=== PATIENT | female | born 1975 | race American Indian/Alaskan Native ===

== ENCOUNTER 2017-03-25 09:55 | Inpatient (IN) | payer SELFPAY ==
[~2017-03-25 09:55] MED LIST: HEPARIN 10,000 UNITS/10 ML ONE
[2017-03-25] MEDS ORDERED: HEPARIN/ 0.45% NACL-25,000 UNIT/500 ML 25,000 UNIT/500 ML BAG IV SCH (10:00)
[2017-03-25] MEDS ORDERED: NACL 0.9% 1000 ML 1,000 ML IV ONE (10:00)
[2017-03-25] MEDS ORDERED: HEPARIN IV ONE (10:00)
[2017-03-25] MEDS ORDERED: NITROSTAT SL PRN (10:00)
[2017-03-25] MEDS ORDERED: CALAN ONE (10:01)
[2017-03-25] MEDS ORDERED: HEPARIN/NS 5000 UNIT/500ML(CATH LAB) 1,000 ML IR ONE (10:01)
[2017-03-25] MEDS ORDERED: NACL 0.9% 1000 ML 1,000 ML ONE (10:02)
[2017-03-25] MEDS ORDERED: XYLOCAINE 2% INFILTRATI ONE (10:02)
[2017-03-25] MEDS ORDERED: SUBLIMAZE ONE (10:03)
[2017-03-25] MEDS ORDERED: VERSED ONE (10:03)
[2017-03-25] MEDS ORDERED: HEPARIN 10,000 UNITS/10 ML IV ONE (10:03)
[2017-03-25] MEDS ORDERED: NITROGLYCERIN SYRINGE 3 ML ONE (10:04)
--- NOTE | 2017-03-25 10:05 | Emergency Department Report ---
ED Chest Pain HPI - General Chief Complaint: Chest Pain Stated Complaint: STEMI Time Seen by Provider: 03/25/17 09:58 Source: patient, EMS Mode of arrival: Stretcher Limitations: No Limitations - History of Present Illness Initial Comments: 41-year-old female with a past medical history hypertension, diabetes, and family history CAD presents to the hospital complaints of left sided chest tightness 6 days. Pain is rated 8/10 intensity and radiates down left arm. Pain is intermittent and without aggravating or alleviating factors. Positive social shortness of breath and diaphoresis. Denies nausea or vomiting. Patient was seen 6 days ago at [facility] ER for chest pain and discharged home on tramadol and Flexeril. Denies history of previous stress test. Denies smoking. Her mother of "heart disease" at age 40. EKG was transmitted by EMS prior to arrival and shows lateral ST elevation with associated inferior reciprocal changes. Patient does not have a assembler for puller over machine. 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 Patient received aspirin 324 mg prior to arrival - Related Data Previous Rx's Medication Instructions Recorded Last Taken Type Cyclobenzaprine [Flexeril 10mg] 10 mg PO TID PRN #14 tablet 10/26/13 Unknown Rx Naproxen [Naprosyn] 500 mg PO BID #20 tablet 10/26/13 Unknown Rx traMADol [Ultram 50 MG tab] 50 mg PO Q6HR PRN #20 tablet 10/26/13 Unknown Rx Cyclobenzaprine [Flexeril 10mg] 10 mg PO TID PRN #14 tablet 04/28/14 Unknown Rx Ibuprofen [Motrin 800 MG tab] 800 mg PO Q8H PRN #30 tablet 04/28/14 Unknown Rx Losartan/Hydrochlorothiazide 1 each PO QDAY #14 tablet 04/28/14 Unknown Rx [Hyzaar 100-25 TAB] amLODIPine [Norvasc] 5 mg PO DAILY #14 tab 04/28/14 Unknown Rx metroNIDAZOLE [Flagyl] 500 mg PO BID #14 tablet 04/28/14 Unknown Rx Allergies Allergy/AdvReac Type Severity Reaction Status Date / Time acetaminophen [From Lortab] Allergy Shortness Verified 10/26/13 15:17 of Breath hydrocodone bitartrate Allergy Shortness Verified 10/26/13 15:17 [From Lortab] of Breath Heart Score - HEART Score History: Highly suspicious EKG: Significant ST-depression Age: 45-65 Risk factors: > 3 risk factors or hx of atherosclerotic disease Troponin: < normal limit HEART Score: 7 ED Review of Systems ROS: Stated complaint: STEMI Other details as noted in HPI Comment: All other systems reviewed and negative Other: Constitutional: No fevers chills or weight loss Eyes: No eye pain visual changes or discharge ENT: No ear pain or throat pain Neck: Denies pain Respiratory: Denies cough wheezing Cardiovascular: Denies palpitations, syncope GI: Denies abdominal pain : Denies dysuria Musculoskeletal: Denies back pain Skin: Denies rash, lesions, erythema Neurologic: Denies headache, numbness, weakness Psychiatric: Denies suicidal ideation, hallucinations ED Past Medical Hx - Past Medical History Previous Medical History?: Yes Hx Hypertension: Yes Hx Diabetes: Yes Additional medical history: back problems - Surgical History Past Surgical History?: Yes Additional Surgical History: x 4 - Social History Smoking Status: Never Smoker Substance Use Type: Alcohol - Medications Home Medications: Home Medications Medication Instructions Recorded Confirmed Last Taken Type Cyclobenzaprine [Flexeril 10mg] 10 mg PO TID PRN #14 tablet 10/26/13 Unknown Rx Naproxen [Naprosyn] 500 mg PO BID #20 tablet 10/26/13 Unknown Rx traMADol [Ultram 50 MG tab] 50 mg PO Q6HR PRN #20 tablet 10/26/13 Unknown Rx Cyclobenzaprine [Flexeril 10mg] 10 mg PO TID PRN #14 tablet 04/28/14 Unknown Rx Ibuprofen [Motrin 800 MG tab] 800 mg PO Q8H PRN #30 tablet 04/28/14 Unknown Rx Losartan/Hydrochlorothiazide 1 each PO QDAY #14 tablet 04/28/14 Unknown Rx [Hyzaar 100-25 TAB] amLODIPine [Norvasc] 5 mg PO DAILY #14 tab 04/28/14 Unknown Rx metroNIDAZOLE [Flagyl] 500 mg PO BID #14 tablet 04/28/14 Unknown Rx ED Physical Exam - General Limitations: No Limitations - Other Other exam information: General: No limitations, patient is alert in no acute distress Head exam: Atraumatic, normocephalic Eyes exam: Normal appearanc ENT: Moist mucous membrane, normal oropharynx Neck exam: Normal inspection, full range of motion, no meningismus nontender Respiratory exam: Clear to auscultation bilateral, no wheezes, rales, crackles Cardiovascular: Normal rate and rhythm, normal heart sounds Abdomen: Soft, nondistended, and nontender, with normal bowel sounds, no rebound, or guarding Extremity: Full range of motion normal inspection no deformity, no calf tenderness or edema Back: Normal Inspection, full range of motion, no tenderness Neurologic: Alert, oriented x3, cranial nerves intact, no motor or sensory deficit Psychiatric: normal affect, normal mood Skin: Warm, dry, intact ED Course Vital Signs 03/25/17 09:56 Temperature 98.5 F Pulse Rate 99 H Respiratory 20 Rate Blood Pressure 142/85 O2 Sat by Pulse 100 Oximetry - Reevaluation(s) Reevaluation #1: 03/25/17 10:07 Cardiology was at the bedside as patient was arriving to the ED. Nitroglycerin sublingual ordered and heparin bolus initiated prior to transfer to Tester Waste Disposal Leakage. - Consultations Consultation #1: 03/25/17 09:42 Case discussed with on-call STEMI assembler for puller over machine Dr. Curry. Tester Waste Disposal Leakage activated CHARITO score - Charito Score Age > 65: (0) No Aspirin use within the Past 7 Days: (0) No 3 or more CAD Risk Factors: (1) Yes 2 or more Angina events in past 24 hrs: (1) Yes Known CAD with more than 50% Stenosis: (0) No Elevated Cardiac Markers: (0) No ST Deviation Greater than 0.5mm: (1) Yes CHARITO Score: 3 ED Medical Decision Making - Lab Data Result diagrams: 03/25/17 09:55 03/25/17 09:55 Lab Results 03/25/17 03/25/17 03/25/17 Range/Units 09:55 09:55 09:55 WBC 7.9 (4.5-11.0) K/mm3 RBC 4.37 (3.65-5.03) M/mm3 Hgb 7.6 L (10.1-14.3) gm/dl Hct 25.9 L (30.3-42.9) % MCV 59 L (79-97) fl MCH 18 L (28-32) pg MCHC 29 L (30-34) % RDW 18.5 H (13.2-15.2) % Plt Count 379 (140-440) K/mm3 Lymph % (Auto) 34.9 (13.4-35.0) % [place] % (Auto) 6.3 (0.0-7.3) % Eos % (Auto) 0.4 (0.0-4.3) % Baso % (Auto) 2.0 H (0.0-1.8) % Lymph # 2.8 (1.2-5.4) K/mm3 [place] # 0.5 (0.0-0.8) K/mm3 Eos # 0.0 (0.0-0.4) K/mm3 Baso # 0.2 H (0.0-0.1) K/mm3 Seg Neutrophils % 56.4 (40.0-70.0) % Seg Neutrophils # 4.4 (1.8-7.7) K/mm3 PT 13.3 (12.2-14.9) Sec. INR 0.96 (0.87-1.13) APTT 23.5 L (24.2-36.6) Sec. Activated Clotting Time (74-137) Sodium 132 L (137-145) mmol/L Potassium 3.7 (3.6-5.0) mmol/L Chloride 94.2 L (98-107) mmol/L Carbon Dioxide 22 (22-30) mmol/L Anion Gap 20 mmol/L BUN 7 (7-17) mg/dL Creatinine 0.6 L (0.7-1.2) mg/dL Estimated GFR > 60 ml/min BUN/Creatinine Ratio 12 % Glucose 313 H (65-100) mg/dL Calcium 8.7 (8.4-10.2) mg/dL Total Creatine Kinase 178 H (30-135) units/L CK-MB (CK-2) 6.5 H (0.0-4.0) ng/mL CK-MB (CK-2) Rel Index 3.6 (0-4) Troponin T 0.024 (0.00-0.029) ng/mL Blood Type Antibody Screen 03/25/17 03/25/17 Range/Units 09:55 13:02 WBC (4.5-11.0) K/mm3 RBC (3.65-5.03) M/mm3 Hgb (10.1-14.3) gm/dl Hct (30.3-42.9) % MCV (79-97) fl MCH (28-32) pg MCHC (30-34) % RDW (13.2-15.2) % Plt Count (140-440) K/mm3 Lymph % (Auto) (13.4-35.0) % [place] % (Auto) (0.0-7.3) % Eos % (Auto) (0.0-4.3) % Baso % (Auto) (0.0-1.8) % Lymph # (1.2-5.4) K/mm3 [place] # (0.0-0.8) K/mm3 Eos # (0.0-0.4) K/mm3 Baso # (0.0-0.1) K/mm3 Seg Neutrophils % (40.0-70.0) % Seg Neutrophils # (1.8-7.7) K/mm3 PT (12.2-14.9) Sec. INR (0.87-1.13) APTT (24.2-36.6) Sec. Activated Clotting Time 142 H (74-137) Sodium (137-145) mmol/L Potassium (3.6-5.0) mmol/L Chloride (98-107) mmol/L Carbon Dioxide (22-30) mmol/L Anion Gap mmol/L BUN (7-17) mg/dL Creatinine (0.7-1.2) mg/dL Estimated GFR ml/min BUN/Creatinine Ratio % Glucose (65-100) mg/dL Calcium (8.4-10.2) mg/dL Total Creatine Kinase (30-135) units/L CK-MB (CK-2) (0.0-4.0) ng/mL CK-MB (CK-2) Rel Index (0-4) Troponin T (0.00-0.029) ng/mL Blood Type B POSITIVE Antibody Screen Negative - EKG Data -: EKG Interpreted by Ri EKG shows normal: sinus rhythm, axis (13), QRS complexes (80), ST-T waves (ST elevation 1 aVL with depressions in inferior leads. Possible anterior infarct) - Differential Diagnosis STEMI, unstable angina, PE, dissection Critical Care Time: No Critical care attestation.: If time is entered above; I have spent that time in minutes in the direct care of this critically ill patient, excluding procedure time. 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
[2017-03-25 10:21] LABS: INR 0.96 (0.87-1.13)
[2017-03-25 10:22] LABS: Partial Thromboplastin Time 23.5 Sec. (24.2-36.6)
[2017-03-25 10:23] LABS: Basophils # (Auto) 0.2 K/mm3 (0.0-0.1); Eosinophils % (Auto) 0.4 % (0.0-4.3); Lymphocytes # (Auto) 2.8 K/mm3 (1.2-5.4); Lymphocytes % (Auto) 34.9 % (13.4-35.0); Mean Corpuscular HGB Conc 29 % (30-34); Monocytes # (Auto) 0.5 K/mm3 (0.0-0.8); Monocytes % (Auto) 6.3 % (0.0-7.3); Platelet Count 379 K/mm3 (140-440); Red Blood Count 4.37 M/mm3 (3.65-5.03); Red Cell Distribution Width 18.5 % (13.2-15.2)
[2017-03-25] MEDS: HEPARIN 10,000 UNITS/10 ML ONE ×2 (10:24→10:34)
[2017-03-25 10:25] LABS: Hematocrit 25.9 % (30.3-42.9); Hemoglobin 7.6 gm/dl (10.1-14.3); Mean Corpuscular Hemoglobin 18 pg (28-32); Mean Corpuscular Volume 59 fl (79-97)
[2017-03-25 10:31] LABS: Creatine Kinase MB 6.5 ng/mL (0.0-4.0)
[2017-03-25 10:32] LABS: BUN/Creatinine Ratio 12; Blood Urea Nitrogen 7 mg/dL (7-17); Calcium 8.7 mg/dL (8.4-10.2); Hemolysis Index 0
[2017-03-25] MEDS ORDERED: PLAVIX ONE (10:46)
[2017-03-25] MEDS ORDERED: ALUM-MAG HYDROX-SIMETH 200-200-20MG/5ML ONE (10:46)
--- NOTE | 2017-03-25 10:54 | History and Physical Report ---
History of Present Illness Date of examination: 03/25/17 Date of admission: 03/25/2017 Chief complaint: chest pain History of present illness: The pt is a 41-year-old female with a past medical history significant for hypertension, diabetes, anemia secondary to heavy menstruation and family history of premature CAD (mother at 40 YOA of "heart disease"). She is previously unknown to our practice. 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 She describes the chest pain as an intermittent left-sided chest tightness which radiates down her left arm. On evaluation, the pt reports that the chest pain is 8/10 on a 0-10 numerical pain scale. The pain is associated with some SOB. Pt denies any palpitations, n/v, dizziness or syncope. She does admit to diaphoresis but reports that this is chronic and unchanged from baseline. Pt denies any clear aggravating or alleviating factors. EKG transmitted by EMS prior to arrival showed ST elevations in lateral leads and code STEMI was activated. Following arrival in ED, pt was taken to recyclable materials sorter for emergent coronary angiography per STEMI protocol. Of note, the patient presented on 03/20/2017 at [facility] with c/o chest pain. She was evaluated in the ED and was found to have EKG with no acute ischemic changes , negative troponin and chest pain that was felt to be reproducible with left arm manipulation per the chart. Pt was discharged home on tramadol and Flexeril. Past History Past Medical History: anemia, diabetes, hypertension Social history: denies: smoking, alcohol abuse, prescription drug abuse Family history: CAD (mother at 40 YOA due to "heart disease") Medications and Allergies Allergies Allergy/AdvReac Type Severity Reaction Status Date / Time acetaminophen [From Lortab] Allergy Shortness Verified 10/26/13 15:17 of Breath hydrocodone bitartrate Allergy Shortness Verified 10/26/13 15:17 [From Lortab] of Breath Home Medications Medication Instructions Recorded Confirmed Last Taken Type Cyclobenzaprine [Flexeril 10mg] 10 mg PO TID PRN #14 tablet 10/26/13 Unknown Rx Naproxen [Naprosyn] 500 mg PO BID #20 tablet 10/26/13 Unknown Rx traMADol [Ultram 50 MG tab] 50 mg PO Q6HR PRN #20 tablet 10/26/13 Unknown Rx Cyclobenzaprine [Flexeril 10mg] 10 mg PO TID PRN #14 tablet 04/28/14 Unknown Rx Ibuprofen [Motrin 800 MG tab] 800 mg PO Q8H PRN #30 tablet 04/28/14 Unknown Rx Losartan/Hydrochlorothiazide 1 each PO QDAY #14 tablet 04/28/14 Unknown Rx [Hyzaar 100-25 TAB] amLODIPine [Norvasc] 5 mg PO DAILY #14 tab 04/28/14 Unknown Rx metroNIDAZOLE [Flagyl] 500 mg PO BID #14 tablet 04/28/14 Unknown Rx Active Meds: Active Medications Heparin Sodium/Sodium Chloride (Heparin/ 0.45% Nacl-25,000 Unit/500 Ml) 25,000 unit in 500 mls @ 20 mls/hr IV TITRATE RAUL; 1,000 UNITS/HR PRN Reason: Protocol Sodium Chloride (Nacl 0.9% 1000 Ml) 1,000 mls @ 42 mls/hr IV ONCE ONE Stop: 03/26/17 09:48 Nitroglycerin (Nitrostat) 0.4 mg SL .Q5MIN PRN PRN Reason: Chest Pain Review of Systems Constitutional: sweats (chronic), no weight loss, no weight gain, no fever, no chills Ears, nose, mouth and throat: no ear pain, no nose pain, no sinus pressure, no sinus pain Cardiovascular: chest pain, shortness of breath, high blood pressure, no orthopnea, no palpitations, no rapid/irregular heart beat, no edema, no syncope , no lightheadedness, no paroxysmal nocturnal dyspnea, no leg edema, no decreased exercise tolerance Respiratory: shortness of breath, no cough, no congestion, no wheezing, no pain on inspiration Gastrointestinal: no abdominal pain, no nausea, no vomiting, no diarrhea, no constipation Genitourinary Female: no pelvic pain, no flank pain, no dysuria, no urinary frequency, no urgency Menstruation: period heavy Musculoskeletal: no neck stiffness, no neck pain Integumentary: no rash, no pruritis, no redness, no sores, no wounds Neurological: no head injury, no paralysis, no weakness, no parathesias, no numbness, no tingling, no seizures, no syncope Psychiatric: no anxiety Endocrine: no cold intolerance, no heat intolerance Hematologic/Lymphatic: no easy bruising, no lymphadenopathy Allergic/Immunologic: no urticaria, no wheezing, no persistent infections Physical Examination Vital Signs Temp Pulse Resp BP Pulse Ox 98.5 F 99 H 20 142/85 100 03/25/17 09:56 03/25/17 09:56 03/25/17 09:56 03/25/17 09:56 03/25/17 09:56 General appearance: other (anxious ) HEENT: Positive: PERRL, Normocephaly, Mucus Membranes Moist Neck: Positive: neck supple, trachea midline Cardiac: Positive: Reg Rate and Rhythm, S1/S2 Lungs: Positive: clear to auscultation Neuro: Positive: Grossly Intact, Cranial Nerve 2-12 Intact Abdomen: Positive: Soft. Negative: Tender Skin: Positive: Clear. Negative: Rash, Wound Musculoskeletal: No Fluid Collection, No Pain, Normal Range of Motion Extremities: Absent: edema Results 03/26/17 05:53 03/26/17 05:53 Cardiac Enzymes 03/25/17 Range/Units 09:55 CK-MB (CK-2) 6.5 H (0.0-4.0) ng/mL Coagulation 03/25/17 Range/Units 09:55 PT 13.3 (12.2-14.9) Sec. INR 0.96 (0.87-1.13) APTT 23.5 L (24.2-36.6) Sec. CBC 03/25/17 Range/Units 09:55 WBC 7.9 (4.5-11.0) K/mm3 RBC 4.37 (3.65-5.03) M/mm3 Hgb 7.6 L (10.1-14.3) gm/dl Hct 25.9 L (30.3-42.9) % Plt Count 379 (140-440) K/mm3 Lymph # 2.8 (1.2-5.4) K/mm3 [place] # 0.5 (0.0-0.8) K/mm3 Eos # 0.0 (0.0-0.4) K/mm3 Baso # 0.2 H (0.0-0.1) K/mm3 Comprehensive Metabolic Panel 03/25/17 Range/Units 09:55 Sodium 132 L (137-145) mmol/L Potassium 3.7 (3.6-5.0) mmol/L Chloride 94.2 L (98-107) mmol/L Carbon Dioxide 22 (22-30) mmol/L BUN 7 (7-17) mg/dL Creatinine 0.6 L (0.7-1.2) mg/dL Glucose 313 H (65-100) mg/dL Calcium 8.7 (8.4-10.2) mg/dL - Imaging and Cardiology Echo: pending Cardiac cath: pending EKG: report reviewed, image reviewed EKG interpretations - Telemetry EKG Rhythm: Sinus Rhythm - EKG Sinus rhythms and dysrhythmias: sinus rhythm Myocardial infarction: lateral [place] (acute or rece Assessment and Plan Assessment: S/p acute lateral STEMI CAD Sinus bradycardia - asymptomatic HTN DM / hyperglycemia Hyponatremia Anemia - due to heavy menstruation per pt report Family history of premature CAD Plan: S/p LHC with PCI - BMS placement to D2 - full cath report to follow. Initiate DAPT with ASA 325 and Plavix. Initiate Lipitor. Obtain lipid panel and Hgb A1C in AM. Initiate lisinopril. Hold beta blockers at this time given sinus bradycardia. Obtain echo. Monitor H/H. Consider DIVERSITY SPECIALIST consultation. Tx to CCU for observation overnight. D/w Dr. Riley. Assessment and plan reviewed with pt and pt's daughter at bedside. The patient has been seen in conjunction with Dr. David Curry who agrees with the assessment and plan of care.
[2017-03-25] MEDS ORDERED: D50W (25GM) Syringe IV PRN (11:12)
[2017-03-25] MEDS ORDERED: ZESTRIL PO SCH (12:00)
--- NOTE | 2017-03-25 12:42 | Cardiac Catherization Report ---
CARDIAC CATHETERIZATION INDICATION FOR PROCEDURE: The patient is a pleasant 41-year-old -L[place] female with a family history of premature heart disease, diabetes, hypertension, presents with several hours of chest pain, lateral ST elevation is noted in Emergency Room, 10/10 chest pain. STEMI protocol was initiated. PROCEDURE IN DETAIL: The patient was brought to the catheterization lab in urgent fashion, 8 mL of 2% lidocaine used to anesthetize the right groin. A standard 6-Kiswahili sheath used to cannulate the right common femoral artery via modified Seldinger technique. All exchanges were performed to exchange a J-tip guidewire. JL3.5 catheter used to engage left main. No dampening or ventricularization. Cineangiography performed in all projections. JR4 catheter was used to cross the aortic valve under fluoroscopic guidance. Left ventriculography performed in 30 WILCOX and 30 DANISH projections via hand injections, catheter flushed. Manual pullback performed with continuous pressure monitoring. Catheter used to engage the right coronary. No dampening or ventricularization. Cineangiography performed in all projections. DATA: Aortic pressure is 140/90, LV pressure is 140. LVP of 16 mmHg. Left ventriculography revealed preserved left ventricular systolic performance with estimated ejection fraction of 50% to 55%. No evidence of aortic stenosis. Normal . CORONARY ANATOMY: This is a codominant system. Right coronary is a moderate sized vessel, courses AV groove, distally bifurcates in the posterior descending and posterolateral branch. No discrete stenosis noted. Left main without significant disease, bifurcates left anterior descending and left circumflex. Left circumflex is a moderate to large vessel, courses AV groove, left PDA. No significant disease. LAD is a large vessel, courses anterior intergroove, wraps around the apex, and no significant disease in the LAD. There is a second diagonal, which is approximately 2.5 vessel with an ulcerated 99% subtotal occlusion proximally. I believe this to be the culprit vessel given the lateral STEMI and chest pain. At this point, we turned our attention to PCI. Heparin was given. Abnormal ACT is confirmed. The patient was given aspirin and Plavix and EBU 3.5 guide used to engage the left main without difficulty. A Whisper extra support wire used to cross the second diagonal lesion without difficulty. I used a 2.0 x 12 balloon to predilate the lesion without difficulty, resumption of CHARITO 3 flow. Next, I used a 2.5 x 12 bare metal stent Resolute. The reason I used a bare metal stent was that the patient was found to have severe anemia and heavy menstrual bleeding with hemoglobin of 7.6. The etiology of this is not entirely clear and thus I used a bare metal. Intravascular ultrasound was used to interrogate diagonal, proximal LAD and left main. IVUS revealed a well expanded and well opposed stent. No complications. Final angiogram reveals excellent angiographic result, CHARITO 3 flow. CONCLUSIONS: 1. Atherothrombotic occlusion of second diagonal in the setting of the lateral ST elevation myocardial infarction. 2. Successful IVUS guided PCI of second diagonal with placement of bare metal stent Integrity 2.5 x 12 stent with excellent final angiographic and ultrasonographic results. 3. No other significant angiographic coronary diseases identified. 4. Normal left ventricular systolic performance, estimated ejection fraction of 50% to 55%. 5. No evidence of aortic stenosis. Standard Groin care post-sheath once ACT less than 170, statin, aspirin, Plavix, aggressive primary and secondary preventions. Her mother had 4 MIs and eventually at age of 40. Results of procedure were explained to the patient and family. All questions and concerns were addressed. The patient will be monitored in the ICU. We will check an echocardiogram; however, further plans contingent on post-cath course. JOB# [id number] SBMalcolm/STEVEN
--- NOTE | 2017-03-25 13:47 | XRay Report ---
AP CHEST: HISTORY: chest pain AP view of the chest demonstrates a normal mediastinal and cardiac contour with clear lungs and normal bony and soft tissue structures. IMPRESSION: Unremarkable AP chest.
[2017-03-25] MEDS ORDERED: NOVOLOG SUB-Q ONE (16:10)
[2017-03-25] MEDS: NOVOLOG SUB-Q SCH ×2 (16:10→22:00)
[2017-03-25] MEDS ORDERED: ULTRAM PO PRN (16:26)
[2017-03-25] MEDS ORDERED: ZOFRAN IV PRN (16:32)
[2017-03-25 17:40] LABS: Creatine Kinase MB 31.7 ng/mL (0.0-4.0)
[2017-03-25 18:08] LABS: Chol/HDL Ratio 3.79 %
[2017-03-25] MEDS ORDERED: MORPHINE IV ONE (21:16)
--- NOTE | 2017-03-25 22:03 | Event Note ---
Date: 03/25/17 41-year-old female with a past medical history hypertension, diabetes, and family history CAD presents to the hospital complaints of left sided chest tightness 6 days. Pain is rated 8/10 intensity and radiates down left arm. Pain is intermittent and without aggravating or alleviating factors. Positive social shortness of breath and diaphoresis. Denies nausea or vomiting. Patient was seen 6 days ago at [facility] ER for chest pain and discharged home on tramadol and Flexeril. Denies history of previous stress test. Denies smoking. Her mother of "heart disease" at age 40. EKG was transmitted by EMS prior to arrival and shows lateral ST elevation with associated inferior reciprocal changes. 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 Patient received aspirin 324 mg prior to arrival Patient is now s/p bare metal stent and has been admitted to the ICU for monitoring. he remains hemodynamically normal.
--- NOTE | 2017-03-26 04:06 | XRay Report ---
FINAL REPORT EXAM: XR CHEST 1V AP HISTORY: Status post percutaneous cardiac catheterization. TECHNIQUE: A single AP semi erect portable radiograph of the chest was obtained. No prior studies are available for comparison. FINDINGS: The cardiac silhouette and mediastinum are within normal limits, accounting for the AP positioning and somewhat low lung volumes. There is slight prominence of the pulmonary vasculature, which may be due to low lung volumes versus minimal pulmonary vascular congestion. There is no focal infiltrate or effusion. There is no pneumothorax. No significant osseous abnormalities are identified. IMPRESSION: Slight prominence of the pulmonary vasculature, which may be due to a low lung volumes versus mild pulmonary vascular congestion. No focal infiltrate, effusion, or pneumothorax.
[2017-03-26 06:31] LABS: Basophils # (Auto) 0.1 K/mm3 (0.0-0.1); Basophils % (Auto) 2.1 % (0.0-1.8); Eosinophils % (Auto) 0.7 % (0.0-4.3); Lymphocytes # (Auto) 1.5 K/mm3 (1.2-5.4); Lymphocytes % (Auto) 21.1 % (13.4-35.0); Mean Corpuscular HGB Conc 29 % (30-34); Monocytes # (Auto) 0.5 K/mm3 (0.0-0.8); Platelet Count 380 K/mm3 (140-440); Red Blood Count 4.74 M/mm3 (3.65-5.03); Red Cell Distribution Width 18.6 % (13.2-15.2)
[2017-03-26 06:48] LABS: Hematocrit 28.2 % (30.3-42.9); Mean Corpuscular Hemoglobin 17 pg (28-32); Mean Corpuscular Volume 59 fl (79-97)
[2017-03-26 06:49] LABS: Creatine Kinase MB 30.3 ng/mL (0.0-4.0)
[2017-03-26 06:53] LABS: BUN/Creatinine Ratio 18; Blood Urea Nitrogen 9 mg/dL (7-17); Calcium 8.6 mg/dL (8.4-10.2); Hemolysis Index 5
[2017-03-26] MEDS: NOVOLOG SUB-Q SCH ×5 (08:08→21:30)
--- NOTE | 2017-03-26 09:05 | Progress Note ---
Assessment and Plan Assessment: S/p acute lateral STEMI - s/p LHC with PCI - BMS placement to D2 on 03/25/2017 CAD Sinus bradycardia - asymptomatic; resolved HTN DM / hyperglycemia Hyponatremia Anemia - due to heavy menstruation per pt report Family history of premature CAD Plan: Pt currently with mild ST and borderline hypotension. D/c lisinopril. Cont all other present cardiac regimen. Consider addition of BB if BPs improve. Initiate maintenance IVF. Transfuse 1 unit PRBC today as preferred Hbg following STEMI is ~10 to prevent demand ischemia. Repeat CBC in AM. Await echo. Tx out of ICU to telemetry. Assessment and plan reviewed with pt and pt's daughter at bedside. The patient has been seen in conjunction with Dr. David Curry who agrees with the assessment and plan of care. Subjective Date of service: 03/26/17 Principal diagnosis: STEMI Interval history: Pt resting up in chair, no current complaints. In SR/ST on tele, SBP in 90s. Daughter at bedside. Objective Last Vital Signs Temp 97.9 F 03/26/17 08:00 Pulse 85 03/25/17 22:00 Resp 16 03/26/17 03:55 BP 117/74 03/25/17 20:40 Pulse Ox 98 03/26/17 03:55 - Physical Examination HEENT: Positive: PERRL, Normocephaly, Mucus Membranes Moist Neck: Positive: neck supple, trachea midline Cardiac: Positive: Reg Rate and Rhythm, S1/S2 Lungs: Positive: clear to auscultation Neuro: Positive: Grossly Intact, Cranial Nerve 2-12 Intact Abdomen: Positive: Soft. Negative: Tender Skin: Positive: Clear. Negative: Rash, Wound Musculoskeletal: No Fluid Collection, No Pain, Normal Range of Motion Extremities: Absent: edema - Labs and Meds Cardiac Enzymes 03/25/17 03/25/17 03/26/17 Range/Units 09:55 17:16 05:53 CK-MB (CK-2) 6.5 H 31.7 H 30.3 H (0.0-4.0) ng/mL Coagulation 03/25/17 Range/Units 09:55 PT 13.3 (12.2-14.9) Sec. INR 0.96 (0.87-1.13) APTT 23.5 L (24.2-36.6) Sec. Lipids 03/25/17 Range/Units 17:16 Triglycerides 163 H (2-149) mg/dL Cholesterol 186 (50-199) mg/dL HDL Cholesterol 49 (40-59) mg/dL Cholesterol/HDL Ratio 3.79 % CBC 03/25/17 03/26/17 Range/Units 09:55 05:53 WBC 7.9 7.3 (4.5-11.0) K/mm3 RBC 4.37 4.74 (3.65-5.03) M/mm3 Hgb 7.6 L 8.0 L (10.1-14.3) gm/dl Hct 25.9 L 28.2 L (30.3-42.9) % Plt Count 379 380 (140-440) K/mm3 Lymph # 2.8 1.5 (1.2-5.4) K/mm3 Drew # 0.5 0.5 (0.0-0.8) K/mm3 Eos # 0.0 0.0 (0.0-0.4) K/mm3 Baso # 0.2 H 0.1 (0.0-0.1) K/mm3 Comprehensive Metabolic Panel 03/25/17 03/26/17 Range/Units 09:55 05:53 Sodium 132 L 135 L (137-145) mmol/L Potassium 3.7 4.1 (3.6-5.0) mmol/L Chloride 94.2 L 98.2 (98-107) mmol/L Carbon Dioxide 22 20 L (22-30) mmol/L BUN 7 9 (7-17) mg/dL Creatinine 0.6 L 0.5 L (0.7-1.2) mg/dL Glucose 313 H 201 H (65-100) mg/dL Calcium 8.7 8.6 (8.4-10.2) mg/dL - Imaging and Cardiology EKG: report reviewed, image reviewed Echo: pending Cardiac cath: pending - EKG Sinus rhythms and dysrhythmias: sinus rhythm Myocardial infarction: lateral MD (acute or rece
[2017-03-26] MEDS ORDERED: NACL 0.9% 500 ML 500 ML IV ONE (09:06)
[2017-03-26] MEDS ORDERED: NACL 0.9% 1000 ML 1,000 ML ONE (09:24)
--- NOTE | 2017-03-26 10:08 | Progress Note ---
Subjective Date of service: 03/26/17 Principal diagnosis: STEMI Objective Vital Signs - 12hr 03/25/17 03/26/17 03/26/17 23:32 00:55 03:55 Temperature 98.3 F Pulse Rate Respiratory 19 16 Rate Blood Pressure O2 Sat by Pulse 99 98 Oximetry 03/26/17 03/26/17 08:00 10:00 Temperature 97.9 F 98.2 F Pulse Rate 87 Respiratory 12 Rate Blood Pressure 98/54 O2 Sat by Pulse 99 Oximetry CBC and BMP: 03/26/17 05:53 03/26/17 05:53 ABG, PT/INR, D-dimer: PT/INR, D-dimer PT 13.3 Sec. (12.2-14.9) 03/25/17 09:55 INR 0.96 (0.87-1.13) 03/25/17 09:55 Abnormal lab findings: Abnormal Labs 03/25/17 03/25/17 03/25/17 09:55 09:55 09:55 Hgb 7.6 L Hct 25.9 L MCV 59 L MCH 18 L MCHC 29 L RDW 18.5 H Baso % (Auto) 2.0 H Baso # 0.2 H APTT 23.5 L Activated Clotting Time Sodium 132 L Chloride 94.2 L Carbon Dioxide Creatinine 0.6 L Glucose 313 H POC Glucose Hemoglobin A1c Total Creatine Kinase 178 H CK-MB (CK-2) 6.5 H CK-MB (CK-2) Rel Index Troponin T Triglycerides Crossmatch 03/25/17 03/25/17 03/25/17 09:55 13:02 16:05 Hgb Hct MCV MCH MCHC RDW Baso % (Auto) Baso # APTT Activated Clotting Time 142 H Sodium Chloride Carbon Dioxide Creatinine Glucose POC Glucose 211 H Hemoglobin A1c Total Creatine Kinase CK-MB (CK-2) CK-MB (CK-2) Rel Index Troponin T Triglycerides Crossmatch See Detail 03/25/17 03/25/17 03/26/17 17:16 22:10 05:32 Hgb Hct MCV MCH MCHC RDW Baso % (Auto) Baso # APTT Activated Clotting Time Sodium Chloride Carbon Dioxide Creatinine Glucose POC Glucose 183 H 228 H Hemoglobin A1c Total Creatine Kinase 386 H CK-MB (CK-2) 31.7 H CK-MB (CK-2) Rel Index 8.2 H Troponin T 0.362 H* D Triglycerides 163 H Crossmatch 03/26/17 03/26/17 03/26/17 05:53 05:53 05:53 Hgb 8.0 L Hct 28.2 L MCV 59 L MCH 17 L MCHC 29 L RDW 18.6 H Baso % (Auto) 2.1 H Baso # APTT Activated Clotting Time Sodium 135 L Chloride Carbon Dioxide 20 L Creatinine 0.5 L Glucose 201 H POC Glucose Hemoglobin A1c 7.9 H Total Creatine Kinase 370 H CK-MB (CK-2) 30.3 H CK-MB (CK-2) Rel Index 8.1 H Troponin T 0.560 H* D Triglycerides Crossmatch
[2017-03-26] MEDS: ECOTRIN PO SCH (10:28)
[2017-03-26] MEDS: PLAVIX PO SCH (10:28)
[2017-03-26 16:51] LABS: Creatine Kinase MB 14.1 ng/mL (0.0-4.0)
[2017-03-26] MEDS: NACL 0.9% 1000 ML 1,000 ML IV SCH (20:00)
[2017-03-27 06:06] LABS: Mean Corpuscular HGB Conc 29 % (30-34); Platelet Count 349 K/mm3 (140-440); Red Blood Count 4.46 M/mm3 (3.65-5.03)
[2017-03-27 06:07] LABS: Hemoglobin 8.2 gm/dl (10.1-14.3); Mean Corpuscular Hemoglobin 18 pg (28-32); Mean Corpuscular Volume 63 fl (79-97); Red Cell Distribution Width 21.2 % (13.2-15.2)
[2017-03-27 06:19] LABS: BUN/Creatinine Ratio 20; Blood Urea Nitrogen 12 mg/dL (7-17); Calcium 7.9 mg/dL (8.4-10.2); Hemolysis Index 1
[2017-03-27] MEDS: NOVOLOG SUB-Q SCH ×4 (10:06→21:44)
[2017-03-27] MEDS: PLAVIX PO SCH (10:58)
[2017-03-27] MEDS: ECOTRIN PO SCH (10:58)
[2017-03-27] MEDS: NACL 0.9% 1000 ML 1,000 ML IV SCH (10:58)
--- NOTE | 2017-03-27 11:00 | Progress Note ---
Assessment and Plan Assessment: S/p acute lateral STEMI - s/p LHC with PCI - BMS placement to D2 on 03/25/2017 CAD Sinus bradycardia - asymptomatic; resolved Symptomatic anemia - due to h/o heavy menstruation per pt report H/o HTN - with hypotension during this admission DM / hyperglycemia Hyponatremia H/o gastric ulcer Family history of premature CAD Plan: Pt s/p 1 unit PRBC yesterday with no apparent improvement in H/H on AM labs. Pt c/o SOB and intermittent "chest tingling" with activity. Echo reviewed - EF 50-55%, impaired relaxation. Currently stable cardiac status with no current active cardiac issues. Nothing further to add from cardiac perspective. Will transfer pt to hospitalist service for further evaluation/management of persistent symptomatic anemia. Cont current cardiac regimen. No BB at this time given hypotension - will readdress as OP. Will follow on as needed basis. Follow up in our [place] office with Karli Palma NP, on 04/07/2017 @ 1:00PM. Assessment and plan reviewed with pt at bedside. The patient has been seen in conjunction with Dr. David Curry who agrees with the assessment and plan of care. Subjective Date of service: 03/27/17 Principal diagnosis: STEMI Interval history: Pt resting in chair, no current complaints. C/o some SOB and intermittent " chest tingling" with activity. Objective Last Vital Signs Temp 98.7 F 03/27/17 05:37 Pulse 80 03/27/17 10:00 Resp 17 03/27/17 05:37 BP 100/62 03/27/17 05:37 Pulse Ox 99 03/27/17 05:37 - Physical Examination HEENT: Positive: PERRL, Normocephaly, Mucus Membranes Moist Neck: Positive: neck supple, trachea midline Cardiac: Positive: Reg Rate and Rhythm, S1/S2 Lungs: Positive: clear to auscultation Neuro: Positive: Grossly Intact, Cranial Nerve 2-12 Intact Abdomen: Positive: Soft. Negative: Tender Skin: Positive: Clear. Negative: Rash, Wound Musculoskeletal: No Fluid Collection, No Pain, Normal Range of Motion Extremities: Absent: edema - Labs and Meds Cardiac Enzymes 03/26/17 Range/Units 15:48 CK-MB (CK-2) 14.1 H (0.0-4.0) ng/mL CBC 03/27/17 Range/Units 05:34 WBC 6.6 (4.5-11.0) K/mm3 RBC 4.46 (3.65-5.03) M/mm3 Hgb 8.2 L (10.1-14.3) gm/dl Hct 28.0 L (30.3-42.9) % Plt Count 349 (140-440) K/mm3 Comprehensive Metabolic Panel 03/27/17 Range/Units 05:32 Sodium 136 L (137-145) mmol/L Potassium 4.2 (3.6-5.0) mmol/L Chloride 102.4 (98-107) mmol/L Carbon Dioxide 20 L (22-30) mmol/L BUN 12 (7-17) mg/dL Creatinine 0.6 L (0.7-1.2) mg/dL Glucose 165 H (65-100) mg/dL Calcium 7.9 L (8.4-10.2) mg/dL - Imaging and Cardiology EKG: report reviewed, image reviewed Echo: report reviewed (EF 50-55%, impaired relaxation) Cardiac cath: report reviewed (PCI - BMS placement to D2 on 03/25/2017) - EKG Sinus rhythms and dysrhythmias: sinus rhythm Myocardial infarction: lateral CT (acute or rece
[2017-03-27] MEDS: PROTONIX PO SCH (12:24)
--- NOTE | 2017-03-27 12:47 | Event Note ---
Date: 03/27/17 Pt last night had atypical cp (resolved), worse when laying flat (fleeting), much different than presenting cp = likely noncardiac cp Now states that she has a h/o PUD ECG just now wnl Still anemic Start protonix Cont asa/plavix Stable cv status, will continue to follow Discussed w rn at bedside Hospitalist team has kindly agreed to take over as primary given symptomatic anemia w/u underway
[2017-03-27] MEDS ORDERED: PEPCID PO SCH (13:00)
[2017-03-27] MEDS ORDERED: FLEXERIL PO PRN (16:15)
--- NOTE | 2017-03-27 16:22 | Consultation ---
History of Present Illness - Reason for Consult Consult date: 03/27/17 Anemia Requesting physician: RUTH PRICE - History of Present Illness Patient is a 41-year-old female with a past medical history significant for hypertension, diabetes, anemia secondary to heavy menstruation and family history of premature CAD who was consulted form [facility] group to us for medical management of hypertension, Anemia and diabetes mellitus. Patient Pt last night had atypical chest pain and now resolved. ACS was ruled out. Patient denies shortness of breath,fever, chills chest pain, headache. Past History Past Medical History: anemia, diabetes, hypertension Social history: denies: smoking, alcohol abuse, prescription drug abuse Family history: CAD (mother at 40 YOA due to "heart disease") Medications and Allergies Allergies Allergy/AdvReac Type Severity Reaction Status Date / Time acetaminophen [From Lortab] Allergy Shortness Verified 10/26/13 15:17 of Breath hydrocodone bitartrate Allergy Shortness Verified 10/26/13 15:17 [From Lortab] of Breath Home Medications Medication Instructions Recorded Confirmed Last Taken Type traMADol [Ultram 50 MG tab] 50 mg PO Q6HR PRN #20 tablet 10/26/13 03/26/17 1 Day Ago Rx ~03/25/17 Cyclobenzaprine [Flexeril 10mg] 10 mg PO TID PRN #14 tablet 04/28/14 03/26/17 1 Day Ago Rx ~03/25/17 Losartan/Hydrochlorothiazide 1 each PO QDAY #14 tablet 04/28/14 03/26/17 1 Day Ago Rx [Hyzaar 100-25 TAB] ~03/25/17 amLODIPine [Norvasc] 5 mg PO DAILY #14 tab 04/28/14 03/26/17 1 Day Ago Rx ~03/25/17 Active Meds: Active Medications Amlodipine Besylate (Norvasc) 5 mg PO DAILY [facility] Aspirin (Ecotrin) 325 mg PO QDAY [facility] Last Admin: 03/27/17 10:58 Dose: 325 mg Atorvastatin Calcium (Lipitor) 80 mg PO QHS [facility] Last Admin: 03/26/17 21:28 Dose: 80 mg Clopidogrel Bisulfate (Plavix) 75 mg PO QDAY [facility] Last Admin: 03/27/17 10:58 Dose: 75 mg Dextrose (D50w (25gm) Syringe) 50 ml IV PRN PRN PRN Reason: Hypoglycemia Ferrous Sulfate (Feosol) 325 mg PO TID [facility] Folic Acid (Folvite) 1 mg PO QDAY [facility] Insulin Aspart (Novolog) 0 units SUB-Q ACHS RAUL PRN Reason: Protocol Last Admin: 03/27/17 12:24 Dose: Not Given Miscellaneous Medication (Losartan/Hydrochlorothiazide [Hyzaar 100-25 Tab]) 1 each PO QDAY [facility] Nitroglycerin (Nitrostat) 0.4 mg SL .Q5MIN PRN PRN Reason: Chest Pain Last Admin: 03/25/17 20:40 Dose: 0.4 mg Ondansetron HCl (Zofran) 4 mg IV Q4H PRN PRN Reason: Nausea And Vomiting Pantoprazole Sodium (Protonix) 40 mg PO QDAY [facility] Last Admin: 03/27/17 12:24 Dose: 40 mg Thiamine HCl (Vitamin B-1) 100 mg PO QDAY [facility] Tramadol HCl (Ultram) 25 mg PO Q6H PRN PRN Reason: Pain, Moderate (4-6) Last Admin: 03/25/17 16:35 Dose: 25 mg Exam - Constitutional Vitals: Temp Pulse Resp BP Pulse Ox 98.7 F 80 17 100/62 99 03/27/17 05:37 03/27/17 10:00 03/27/17 05:37 03/27/17 05:37 03/27/17 05:37 Results - Labs CBC & Chem 7: 03/27/17 05:34 03/27/17 05:32 Labs: Abnormal lab results 03/26/17 03/26/17 03/26/17 Range/Units 08:21 15:48 16:40 Hgb (10.1-14.3) gm/dl Hct (30.3-42.9) % MCV (79-97) fl MCH (28-32) pg MCHC (30-34) % RDW (13.2-15.2) % Sodium (137-145) mmol/L Carbon Dioxide (22-30) mmol/L Creatinine (0.7-1.2) mg/dL Glucose (65-100) mg/dL POC Glucose 209 H 157 H (70-105) Calcium (8.4-10.2) mg/dL Total Creatine Kinase 186 H (30-135) units/L CK-MB (CK-2) 14.1 H (0.0-4.0) ng/mL CK-MB (CK-2) Rel Index 7.5 H (0-4) Troponin T 0.472 H* (0.00-0.029) ng/mL 03/26/17 03/27/17 03/27/17 Range/Units 21:03 05:32 05:34 Hgb 8.2 L (10.1-14.3) gm/dl Hct 28.0 L (30.3-42.9) % MCV 63 L (79-97) fl MCH 18 L (28-32) pg MCHC 29 L (30-34) % RDW 21.2 H (13.2-15.2) % Sodium 136 L (137-145) mmol/L Carbon Dioxide 20 L (22-30) mmol/L Creatinine 0.6 L (0.7-1.2) mg/dL Glucose 165 H (65-100) mg/dL POC Glucose 150 H (70-105) Calcium 7.9 L (8.4-10.2) mg/dL Total Creatine Kinase (30-135) units/L CK-MB (CK-2) (0.0-4.0) ng/mL CK-MB (CK-2) Rel Index (0-4) Troponin T (0.00-0.029) ng/mL 03/27/17 03/27/17 Range/Units 07:43 12:19 Hgb (10.1-14.3) gm/dl Hct (30.3-42.9) % MCV (79-97) fl MCH (28-32) pg MCHC (30-34) % RDW (13.2-15.2) % Sodium (137-145) mmol/L Carbon Dioxide (22-30) mmol/L Creatinine (0.7-1.2) mg/dL Glucose (65-100) mg/dL POC Glucose 139 H 116 H (70-105) Calcium (8.4-10.2) mg/dL Total Creatine Kinase (30-135) units/L CK-MB (CK-2) (0.0-4.0) ng/mL CK-MB (CK-2) Rel Index (0-4) Troponin T (0.00-0.029) ng/mL Assessment and Plan Patient is a 41-year-old female with a past medical history significant for hypertension, diabetes, anemia secondary to heavy menstruation and family history of premature CAD [facility] for medical management of hypertension, Anemia and diabetes mellitus. Symptomatic anemia Secondary to h/o heavy menstruation per pt report Stable no need of transfusion at this time. Status post 1 unit PRBC yesterday Started on iron supplement, and folic acid Closely monitor H&H S/p acute lateral STEMI - s/p LHC with PCI - BMS placement to D2 on 03/25/2017 CAD Echo reviewed - EF 50-55%, impaired relaxation. Cardiology following no further cardiac work out per cardiology Sinus bradycardia Asymptomatic; resolved H/o HTN - with hypotension during this admission Hold antihypertensive medication for now Closely monitor blood pressure Diabetes mellitus with hyperglycemia Accu-Chek Before meals and at bedtime Sliding scale insulin/NovoLog ADA consistent carbohydrate diet. Hyponatremia IV fluid hydration that will correct it Closely monitor electrolytes H/o gastric ulcer Family history of premature CAD Prophylaxis Lovenox
[2017-03-27 17:48] LABS: % Iron Saturation 3.8 %
--- NOTE | 2017-03-27 20:25 | Event Note ---
Date: 03/27/17 Resting peacefully in bed; feels better overall; denies acute chest pains or increased SOB; No N/V/F/C A&P: S/p acute lateral STEMI CAD Sinus bradycardia - asymptomatic HTN DM / hyperglycemia Hyponatremia Anemia - due to heavy menstruation per pt report Family history of premature CAD - S/p LHC with PCI - BMS placement to D2 - tighten glycemic control - continue DMOD's re: anti-lipid therapy, RAMAN-I, B-Blockers per cardiology recs - continue GI & VTE prophylaxis - further w/up per attending and cardiology ....will see prn
[2017-03-27] MEDS: FEOSOL PO SCH (21:43)
[2017-03-28 08:49] LABS: Hemoglobin 8.2 gm/dl (10.1-14.3); Mean Corpuscular HGB Conc 30 % (30-34); Platelet Count 312 K/mm3 (140-440); Red Blood Count 4.32 M/mm3 (3.65-5.03)
[2017-03-28] MEDS: NOVOLOG SUB-Q SCH ×4 (08:52→22:18)
[2017-03-28] MEDS: FEOSOL PO SCH ×3 (08:53→22:17)
[2017-03-28 08:54] LABS: Mean Corpuscular Hemoglobin 19 pg (28-32); Mean Corpuscular Volume 63 fl (79-97); Red Cell Distribution Width 20.4 % (13.2-15.2)
[2017-03-28] MEDS ORDERED: HYDROCHLOROTHIAZIDE PO SCH (10:00)
[2017-03-28] MEDS ORDERED: LOSARTAN PO SCH (10:00)
[2017-03-28] MEDS: COZAAR PO SCH (11:19)
[2017-03-28] MEDS: PLAVIX PO SCH (11:21)
[2017-03-28] MEDS: PROTONIX PO SCH (11:21)
[2017-03-28] MEDS: VITAMIN B-1 PO SCH (11:21)
[2017-03-28] MEDS: NORVASC PO SCH (11:21)
[2017-03-28] MEDS: ECOTRIN PO SCH (11:21)
[2017-03-28] MEDS: FOLVITE PO SCH (11:22)
[2017-03-28] MEDS: HCTZ PO SCH (11:22)
--- NOTE | 2017-03-28 14:31 | Progress Note ---
Assessment and Plan Assessment and plan: Transport Specialist for Anemia, Initial Consultation done by Aster Kendrick NP and Dr. Najera Patient is a 41-year-old female with a past medical history significant for hypertension, diabetes mellitus type 2, anemia secondary to heavy menstruation and family history of premature CAD who was consulted for medical management of hypertension, Anemia and diabetes mellitus. Symptomatic anemia Secondary to h/o heavy menstruation per pt report Stable no need of transfusion at this time. Status post 1 unit PRBC yesterday Started on iron supplement, and folic acid Closely monitor H&H S/p acute lateral STEMI - s/p LHC with PCI - BMS placement to D2 on 03/25/2017 CAD, Echo reviewed - EF 50-55%, impaired relaxation. Cardiology following no further cardiac work out per cardiology Sinus bradycardia Asymptomatic; resolved H/o HTN - with hypotension during this admission Hold antihypertensive medication for now Closely monitor blood pressure Diabetes mellitus with hyperglycemia Accu-Chek Before meals and at bedtime Sliding scale insulin/NovoLog ADA consistent carbohydrate diet. Hyponatremia IV fluid hydration that will correct it Closely monitor electrolytes H/o gastric ulcer Family history of premature CAD Prophylaxis Lovenox add sq Levemir tonight, will follow anemia stable Hospitalist Physical - Constitutional Vitals: Temp Pulse Resp BP Pulse Ox 98.5 F 79 18 123/74 98 03/28/17 12:27 03/28/17 12:27 03/28/17 12:27 03/28/17 12:27 03/28/17 12:27 General appearance: Present: other (anxious ) Results - Labs CBC & Chem 7: 03/28/17 08:15 03/27/17 05:32 Labs: Laboratory Last Values WBC 5.7 K/mm3 (4.5-11.0) 03/28/17 08:15 RBC 4.32 M/mm3 (3.65-5.03) 03/28/17 08:15 Hgb 8.2 gm/dl (10.1-14.3) L 03/28/17 08:15 Hct 27.0 % (30.3-42.9) L 03/28/17 08:15 MCV 63 fl (79-97) L 03/28/17 08:15 MCH 19 pg (28-32) L 03/28/17 08:15 MCHC 30 % (30-34) 03/28/17 08:15 RDW 20.4 % (13.2-15.2) H 03/28/17 08:15 Plt Count 312 K/mm3 (140-440) 03/28/17 08:15 Lymph % (Auto) 21.1 % (13.4-35.0) 03/26/17 05:53 Caroline % (Auto) 7.0 % (0.0-7.3) 03/26/17 05:53 Eos % (Auto) 0.7 % (0.0-4.3) 03/26/17 05:53 Baso % (Auto) 2.1 % (0.0-1.8) H 03/26/17 05:53 Lymph # 1.5 K/mm3 (1.2-5.4) 03/26/17 05:53 Caroline # 0.5 K/mm3 (0.0-0.8) 03/26/17 05:53 Eos # 0.0 K/mm3 (0.0-0.4) 03/26/17 05:53 Baso # 0.1 K/mm3 (0.0-0.1) 03/26/17 05:53 Seg Neutrophils % 69.1 % (40.0-70.0) 03/26/17 05:53 Seg Neutrophils # 5.0 K/mm3 (1.8-7.7) 03/26/17 05:53 PT 13.3 Sec. (12.2-14.9) 03/25/17 09:55 INR 0.96 (0.87-1.13) 03/25/17 09:55 APTT 23.5 Sec. (24.2-36.6) L 03/25/17 09:55 Activated Clotting Time 142 (74-137) H 03/25/17 13:02 Sodium 136 mmol/L (137-145) L 03/27/17 05:32 Potassium 4.2 mmol/L (3.6-5.0) 03/27/17 05:32 Chloride 102.4 mmol/L (98-107) 03/27/17 05:32 Carbon Dioxide 20 mmol/L (22-30) L 03/27/17 05:32 Anion Gap 18 mmol/L 03/27/17 05:32 BUN 12 mg/dL (7-17) 03/27/17 05:32 Creatinine 0.6 mg/dL (0.7-1.2) L 03/27/17 05:32 Estimated GFR > 60 ml/min 03/27/17 05:32 BUN/Creatinine Ratio 20 % 03/27/17 05:32 Glucose 165 mg/dL (65-100) H 03/27/17 05:32 POC Glucose 257 (70-105) H 03/27/17 21:42 Hemoglobin A1c 7.9 % (4-6) H 03/26/17 05:53 Calcium 7.9 mg/dL (8.4-10.2) L 03/27/17 05:32 Iron 15 ug/dL (37-170) L 03/27/17 16:52 TIBC 395 mcg/dL (250-450) 03/27/17 16:52 % Saturation 3.80 % 03/27/17 16:52 Transferrin 362 mg/dl (192-382) 03/27/17 16:52 Total Creatine Kinase 186 units/L (30-135) H 03/26/17 15:48 CK-MB (CK-2) 14.1 ng/mL (0.0-4.0) H 03/26/17 15:48 CK-MB (CK-2) Rel Index 7.5 (0-4) H 03/26/17 15:48 Troponin T 0.472 ng/mL (0.00-0.029) H* 03/26/17 15:48 Triglycerides 163 mg/dL (2-149) H 03/25/17 17:16 Cholesterol 186 mg/dL (50-199) 03/25/17 17:16 LDL Cholesterol Direct 105 mg/dL (50-130) 03/25/17 17:16 HDL Cholesterol 49 mg/dL (40-59) 03/25/17 17:16 Cholesterol/HDL Ratio 3.79 % 03/25/17 17:16 Blood Type B POSITIVE 03/25/17 09:55 Antibody Screen Negative 03/25/17 09:55 Crossmatch See Detail 03/25/17 09:55
[2017-03-29] MEDS: NOVOLOG SUB-Q SCH ×2 (10:12→13:04)
[2017-03-29] MEDS: VITAMIN B-1 PO SCH (10:14)
[2017-03-29] MEDS: ECOTRIN PO SCH (10:15)
[2017-03-29] MEDS: PLAVIX PO SCH (10:15)
[2017-03-29] MEDS: FOLVITE PO SCH (10:15)
[2017-03-29] MEDS: FEOSOL PO SCH (10:15)
[2017-03-29] MEDS: PROTONIX PO SCH (10:15)
[2017-03-29] MEDS: COZAAR PO SCH (10:16)
[2017-03-29] MEDS: HCTZ PO SCH (10:16)
[2017-03-29] MEDS: NORVASC PO SCH (10:17)
[2017-03-29 10:18] VITALS: BP 117/70
--- NOTE | 2017-03-29 13:17 | Discharge Summary ---
Providers - Providers Date of Admission: 03/25/17 10:45 Date of discharge: 03/29/17 Attending physician: DEMI PRICE 03/25/17 Consult to Cardiac Rehabilitation [CONS] Routine Reason For Exam: post pci 03/25/17 09:58 Consult to Physician [CONS] Urgent Consulting Provider: DEMI PRICE Reason For Exam: stemi Notified:: y 03/25/17 10:47 Consult to Physician [CONS] Routine Consulting Provider: JULIANE LAU Reason For Exam: CCU care s/p STEMI with PCI Place consult to:: Notified:: yes Phone number called:: Answering service Was contact made?: Yes If yes, spoke with:: Time called:: 18:00 03/25/17 11:12 Consult to Dietitian/Nutrition [CONS] Routine Physician Instructions: Reason For Exam: Reason for Consult: CAD, DM 03/27/17 10:27 Consult to Physician [CONS] Routine Consulting Provider: HAYDER GUIDO Reason For Exam: symptomatic anemia Place consult to:: Hayder Notified:: y Phone number called:: [phone] Was contact made?: Yes If yes, spoke with:: Hayder Time called:: 10:37 Primary care physician: [employer] Hospitalization Condition: Stable Hospital course: Patient is a 41-year-old female with a past medical history significant for hypertension, diabetes mellitus type 2, anemia secondary to heavy menstruation and family history of premature CAD who initially presented to [facility] on 03/25/17 with chest pains and was admitted by Cardiology for STEMI and underwent LHC with PCI. Hospitalist was consulted for management of symptomatic anemia on . Initial Consultation done by Aster Guido NP and Dr. Najera for anemia. She did receive 1 unit of prbc for hgb of 7.6. Then, it appears she was transferred to the Hospitalist service, possibly accepted by Dr. Najera. The anemia is most likely chronic iron deficiency anemia due to chronic blood loss +/- thalassemia with MCV of 59. Symptomatic anemia, acute on chronic blood loss anemia Secondary to h/o heavy menstruation per pt Stable no need of transfusion at this time. Status post 1 unit PRBC yesterday Started on iron supplement, and folic acid Closely monitor H&H S/p acute lateral STEMI - s/p LHC with PCI - BMS placement to D2 on 03/25/2017 CAD, Echo reviewed - EF 50-55%, impaired relaxation. Cardiology following no further cardiac work up per cardiology Sinus bradycardia Asymptomatic; resolved H/o HTN - with hypotension during this admission Hold antihypertensive medication for now Closely monitor blood pressure Diabetes mellitus with hyperglycemia Accu-Chek Before meals and at bedtime Sliding scale insulin/NovoLog ADA consistent carbohydrate diet. Hyponatremia IV fluid hydration that will correct it Closely monitor electrolytes H/o gastric ulcer Family history of premature CAD Prophylaxis Lovenox add sq Levemir tonight, will follow==>she did not want levemir, she wants to be back on metformin, a1c 7.9, she admits to noncompliance and counseling was done. anemia stable per Cardiology, Dr. Mary Price: "S/p acute lateral STEMI - s/p LHC with PCI - BMS placement to D2 on 03/25/2017 CAD Sinus bradycardia - asymptomatic; resolved Symptomatic anemia - due to h/o heavy menstruation per pt report H/o HTN - with hypotension during this admission DM / hyperglycemia Hyponatremia H/o gastric ulcer Family history of premature CAD Plan: Pt s/p 1 unit PRBC yesterday with no apparent improvement in H/H on AM labs. Pt c/o SOB and intermittent "chest tingling" with activity. Echo reviewed - EF 50-55%, impaired relaxation. Currently stable cardiac status with no current active cardiac issues. Nothing further to add from cardiac perspective. Will transfer pt to hospitalist service for further evaluation/management of persistent symptomatic anemia. Cont current cardiac regimen. No BB at this time given hypotension - will readdress as OP. Will follow on as needed basis. Follow up in our [place] office with Karli Weiss NP, on 04/07/2017 @ 1:00PM. Assessment and plan reviewed with pt at bedside. The patient has been seen in conjunction with Dr. David Price who agrees with the assessment and plan of care. Date: 03/27/17 Pt last night had atypical cp (resolved), worse when laying flat (fleeting), much different than presenting cp = likely noncardiac cp Now states that she has a h/o PUD ECG just now wnl Still anemic Start protonix Cont asa/plavix Stable cv status, will continue to follow Discussed w rn at bedside Hospitalist team has kindly agreed to take over as primary given symptomatic anemia w/u underway" 03/29/17: d/w Dr. Coffey ==> stop hctz/norvasc and give bb, metoprolol 25mg bid and lower losartan to 50mg/day, continue lipitor 80mg/asa 325/plavix 75mg daily Disposition: DC-01 TO HOME OR SELFCARE Time spent for discharge: 35 minutes Core Measure Documentation - Palliative Care Palliative Care/ Comfort Measures: Not Applicable - Core Measures Any of the following diagnoses?: acute UT - VTE Discharge Requirements Deep Vein Thrombosis/Pulmonary Embolism Present on Admission: No Has pt received <5 days of overlap therapy or INR<2.0: No Anticoagulant overlap therapy prescribed at discharge: No Contraindication No Overlap Therapy order at DC: Not Indicated - Acute UT Discharge Requirements Aspirin at discharge: Yes RAMAN/ARB for LVSD if EF <40%: Yes Beta cristiane at discharge: Yes Statin for LDL = or >100 mg/dl on DC: Yes Exam - Physical Exam Narrative exam: GEN: WDWN, NAD, AWAKE, ALERT, ORIENTATED 3 HEENT: NCAT, EOMI, PERRL, OP Clear NECK: supple, no adenopathy, no thyromegaly, no JVD CVS/HEART: RRR, NORMAL S1S2, NO JVD, pulses present bilaterally CHEST/LUNGS: CTA B, Symmetrical chest expansion, good air entry bilaterally GI/Abdomen: soft, NTND, good bowel sounds, no guarding or rebound /Bladder: no suprapubic tenderness, no CVA or paraspinal tenderness EXT/Skin: no c/c/e, no obvious rash MSK: FROM x 4 Neuro: CN 2-12 grossly intact, no new focal deficits Psych: calm - Constitutional Vitals: Temp Pulse Resp BP Pulse Ox 98.5 F 75 18 117/70 100 03/29/17 08:14 03/29/17 10:17 03/29/17 08:14 03/29/17 10:17 03/29/17 08:14 Plan Activity: other (no strenous activity until cleared by cardiology) Diet: low salt, diabetic Special Instructions: record daily BP diary Additional Instructions: No working until cleared by Commanding [employer]. See manager internet retails sales regarding abnormal menstrual cycle, Dr. Martin if you do not have an job setter Follow up with: PRIMARY CARE, [Primary Care Provider] - 3-5 Days KARLI WEISS NP [Advanced Practice Nurse] - 04/07/17 1:00 pm MARTA MARTIN MD [Staff Physician] - 7 Days Forms: CardCath PCI D/C Instructions, Work/School Excuse Out Patient Prescriptions: AtorvaSTATin [Lipitor] 80 mg PO QHS #30 day Aspirin EC [Aspirin Enteric Coated TAB] 325 mg PO QDAY #30 tablet Clopidogrel [Plavix] 75 mg PO QDAY #30 tablet Docusate Sodium [Colace] 100 mg PO QDAY #30 capsule Ferrous Sulfate [Feosol 325 MG tab] 325 mg PO TID #30 day Losartan [Cozaar] 50 mg PO QDAY #30 tablet metFORMIN [Glucophage] 500 mg PO BIDDIAB #60 tablet Metoprolol [Lopressor] 25 mg PO BID #60 tablet Nitroglycerin [Nitrostat] 0.4 mg SL .Q5MIN PRN #30 tablet PRN Reason: Chest Pain
[2017-03-29] MEDS ORDERED: GLUCOPHAGE PO SCH (17:00)
== END 2017-03-29 16:56 | disposition home or self-care (01) | DRG 249 ==
LOC: ED 09:55 → CATH 09:55 → ED 10:00 → CC1 10:45 → EDSTATUS 11:25 → CC1 17:54 → 4A 03-26 13:21
PROVIDERS: ADMIT Internal Medicine; ATTEND Internal Medicine
PROC: 02703DZ Dilation of Coronary Artery, One Artery with Intraluminal Device, Percutaneous Approach (ICD-10-PCS; 2017-03-25)
PROC: 4A023N7 Measurement of Cardiac Sampling and Pressure, Left Heart, Percutaneous Approach (ICD-10-PCS; 2017-03-25)
PROC: B2111ZZ Fluoroscopy of Multiple Coronary Arteries using Low Osmolar Contrast (ICD-10-PCS; 2017-03-25)
PROC: B2151ZZ Fluoroscopy of Left Heart using Low Osmolar Contrast (ICD-10-PCS; 2017-03-25)
PROC: 6A750ZZ Ultrasound Therapy, Circulatory, Single (ICD-10-PCS; 2017-03-25)
PROC: 30233N1 Transfusion of Nonautologous Red Blood Cells into Peripheral Vein, Percutaneous Approach (ICD-10-PCS; principal; 2017-03-26)
DX: I21.29 ST elevation (STEMI) myocardial infarction involving other sites (principal); E87.1 Hypo-osmolality and hyponatremia; I10 Essential (primary) hypertension; D50.0 Iron deficiency anemia secondary to blood loss (chronic); I25.10 Atherosclerotic heart disease of native coronary artery without angina pectoris; R00.1 Bradycardia, unspecified; E11.65 Type 2 diabetes mellitus with hyperglycemia; Z91.19 Patient's noncompliance with other medical treatment and regimen; Z71.9 Counseling, unspecified; Z82.49 Family history of ischemic heart disease and other diseases of the circulatory system; Z88.8 Allergy status to other drugs, medicaments and biological substances; Z79.899 Other long term (current) drug therapy
CPT/HCPCS: 36415; 71010; 80048; 80061; 82550; 82553; 82962; 83036; 83550; 84484; 85025; 85027; 85347; 85610; 85730; 86850; 86900; 86901; 86920; 92941; 92978; 93005; 93010; 93306; 93458; 96372; A9270-GY; C1725; C1753; C1769; C1876; C1887; C1894; J1644; J1815; J2250; J2270; J3010; J7030; P9016; Q9967

== ENCOUNTER 2019-07-16 22:52 | Emergency (ER) | payer SELFPAY ==
[2019-07-16] MEDS ORDERED: ASPIRIN 325 MG TAB PO ONE (23:10)
--- NOTE | 2019-07-16 23:15 | Emergency Department Report ---
ED Chest Pain HPI - General Chief Complaint: Chest Pain Stated Complaint: CHEST PAIN,VINEET,ETOH Time Seen by Provider: 07/16/19 22:57 Source: patient, EMS, old records reviewed Mode of arrival: Stretcher Limitations: No Limitations - History of Present Illness Initial Comments: 43-year-old female with a past medical history of wop-zvpoqff-flowjrwjx diabete s, CAD with stent placement (lateral ST elevation DC here February 2017), anemia secondary to heavy menses requiring blood transfusion, family history of premature CAD, and hypertension presents to the hospital complaining of chest pain that started this evening while crying. Patient states she is gone through a break-up with her boyfriend and has been drinking alcohol since approximately 3 PM. While crying she developed left-sided upper chest pain described as a 5/10 pressure. Patient states this pain is different from her DC related chest pain. She denies nausea, vomiting, diaphoresis, or shortness of breath with pain. Pain was present upon EMS arrival but has since resolved after arrival to the ED. No medications provided in route. Patient admits to medication noncompliance for the last 2 days. Patient was here with a DC requiring stent placement February 2017 with last cardiology follow-up in the summer 2017. Patient does not currently have a primary care doctor. She denies daily alcohol intake and smoking. Patient is currently on her menstrual cycle and to continue to be heavy. Patient mentions that her current medications include aspirin, Plavix, losartan, iron tablets, metoprolol, metformin, and amlodipine. She is not currently taking an anti-lipid medication. - Related Data Previous Rx's Medication Instructions Recorded Last Taken Type Aspirin EC [Ecotrin] 325 mg PO QDAY #30 tablet 03/29/17 Unknown Rx Clopidogrel [Plavix] 75 mg PO QDAY #30 tablet 03/29/17 Unknown Rx Docusate Sodium [Colace] 100 mg PO QDAY #30 capsule 03/29/17 Unknown Rx Ferrous Sulfate [Feosol 325 MG tab] 325 mg PO TID #30 day 03/29/17 Unknown Rx Losartan [Cozaar] 50 mg PO QDAY #30 tablet 03/29/17 Unknown Rx Metoprolol [Lopressor] 25 mg PO BID #60 tablet 03/29/17 Unknown Rx Nitroglycerin [Nitrostat] 0.4 mg SL .Q5MIN PRN #30 tablet 03/29/17 Unknown Rx metFORMIN [Glucophage] 500 mg PO BIDDIAB #60 tablet 03/29/17 Unknown Rx AtorvaSTATin [Lipitor] 40 mg PO QHS #30 day 07/17/19 Unknown Rx Allergies Allergy/AdvReac Type Severity Reaction Status Date / Time acetaminophen [From Lortab] Allergy Shortness Verified 10/26/13 15:17 of Breath hydrocodone bitartrate Allergy Shortness Verified 10/26/13 15:17 [From Lortab] of Breath Heart Score - HEART Score History: Slightly suspicious EKG: Normal Age: < 45 Risk factors: > 3 risk factors or hx of atherosclerotic disease Troponin: < normal limit HEART Score: 2 ED Review of Systems ROS: Stated complaint: CHEST PAIN,VINEET,ETOH Other details as noted in HPI Comment: All other systems reviewed and negative ED Past Medical Hx - Past Medical History Previous Medical History?: Yes Hx Hypertension: Yes Hx Congestive Heart Failure: No Hx Diabetes: Yes Hx GERD: Yes Hx Arthritis: Yes (back) Hx Asthma: No Hx COPD: No Additional medical history: back problems - Surgical History Past Surgical History?: Yes Hx Coronary Stent: Yes (02/2017 second diagonal branch) Additional Surgical History: x 4 - Social History Smoking Status: Never Smoker Substance Use Type: Alcohol - Medications Home Medications: Home Medications Medication Instructions Recorded Confirmed Last Taken Type Aspirin EC [Ecotrin] 325 mg PO QDAY #30 tablet 03/29/17 Unknown Rx Clopidogrel [Plavix] 75 mg PO QDAY #30 tablet 03/29/17 Unknown Rx Docusate Sodium [Colace] 100 mg PO QDAY #30 capsule 03/29/17 Unknown Rx Ferrous Sulfate [Feosol 325 MG tab] 325 mg PO TID #30 day 03/29/17 Unknown Rx Losartan [Cozaar] 50 mg PO QDAY #30 tablet 03/29/17 Unknown Rx Metoprolol [Lopressor] 25 mg PO BID #60 tablet 03/29/17 Unknown Rx Nitroglycerin [Nitrostat] 0.4 mg SL .Q5MIN PRN #30 tablet 03/29/17 Unknown Rx metFORMIN [Glucophage] 500 mg PO BIDDIAB #60 tablet 03/29/17 Unknown Rx AtorvaSTATin [Lipitor] 40 mg PO QHS #30 day 07/17/19 Unknown Rx ED Physical Exam - General Limitations: No Limitations - Other Other exam information: General: No acute distress Head: Atraumatic Eyes: normal appearance ENT: Moist mucous membranes Neck: Normal appearance, no midline tenderness Chest: Clear to auscultation bilaterally CV: Regular rate and rhythm Abdomen: Soft, normal bowel sounds, nontender, nondistended, no rebound or guarding, chest wall nontender Back: Normal inspection Extremity: Normal inspection, full range of motion, no calf tenderness or leg edema Neuro: Alert O x 3, no facial asymmetry, speech clear, no gross motor sensory deficit Psych: Appropriate behavior, mildly intoxicated Skin: No rash ED Course Vital Signs 07/16/19 07/16/19 07/17/19 23:32 23:33 00:00 Temperature 98.7 F Pulse Rate 102 H 101 H 100 H Respiratory 16 20 11 L Rate Blood Pressure 153/101 Blood Pressure 140/91 [Left] O2 Sat by Pulse 96 97 Oximetry 07/17/19 07/17/19 07/17/19 00:30 01:00 01:06 Temperature Pulse Rate 92 H 94 H 95 H Respiratory 17 16 15 Rate Blood Pressure 127/76 131/81 Blood Pressure 131/81 [Left] O2 Sat by Pulse 98 97 95 Oximetry 07/17/19 07/17/19 07/17/19 01:30 02:00 02:18 Temperature Pulse Rate 94 H 94 H 92 H Respiratory 16 16 17 Rate Blood Pressure 132/77 114/69 Blood Pressure 119/69 [Left] O2 Sat by Pulse 97 97 96 Oximetry 07/17/19 07/17/19 07/17/19 02:31 03:00 03:30 Temperature Pulse Rate 89 92 H 89 Respiratory 16 15 15 Rate Blood Pressure 187/107 163/93 165/87 Blood Pressure [Left] O2 Sat by Pulse 97 96 97 Oximetry 07/17/19 04:00 Temperature Pulse Rate 91 H Respiratory 16 Rate Blood Pressure 165/87 Blood Pressure [Left] O2 Sat by Pulse 97 Oximetry - Reevaluation(s) Reevaluation #1: 07/17/19 05:16 Patient has been chest pain free during ED stay. Complaining of mild headache likely secondary to alcohol ingestion. Toradol provided. No nausea, vomiting, focal weakness, patient has steady gait. - Consultations Consultation #1: 07/17/19 03:20 Case discussed with on-call group managing director Dr. Cloud. pt with 2 neg trop, pain free, 2 normal ekg. f/u advised SULEMAN score - Suleman Score Age > 65: (0) No Aspirin use within the Past 7 Days: (1) Yes 3 or more CAD Risk Factors: (1) Yes 2 or more Angina events in past 24 hrs: (0) No Known CAD with more than 50% Stenosis: (0) No Elevated Cardiac Markers: (0) No ST Deviation Greater than 0.5mm: (0) No SULEMAN Score: 2 ED Medical Decision Making - Lab Data Result diagrams: 07/16/19 23:31 07/16/19 23:31 Lab Results 07/16/19 07/16/19 07/16/19 Range/Units 23:20 23:30 23:31 WBC 3.8 L (4.5-11.0) K/mm3 RBC 4.14 (3.65-5.03) M/mm3 Hgb 11.1 (10.1-14.3) gm/dl Hct 33.5 (30.3-42.9) % MCV 81 (79-97) fl MCH 27 L (28-32) pg MCHC 33 (30-34) % RDW 16.4 H (13.2-15.2) % Plt Count 252 (140-440) K/mm3 Lymph % (Auto) 37.1 H (13.4-35.0) % [place] % (Auto) 6.0 (0.0-7.3) % Eos % (Auto) 0.6 (0.0-4.3) % Baso % (Auto) 2.9 H (0.0-1.8) % Lymph # 1.4 (1.2-5.4) K/mm3 [place] # 0.2 (0.0-0.8) K/mm3 Eos # 0.0 (0.0-0.4) K/mm3 Baso # 0.1 (0.0-0.1) K/mm3 Seg Neutrophils % 53.4 (40.0-70.0) % Seg Neutrophils # 2.1 (1.8-7.7) K/mm3 PT (12.2-14.9) Sec. INR (0.87-1.13) APTT (24.2-36.6) Sec. Sodium (137-145) mmol/L Potassium (3.6-5.0) mmol/L Chloride (98-107) mmol/L Carbon Dioxide (22-30) mmol/L Anion Gap mmol/L BUN (7-17) mg/dL Creatinine (0.7-1.2) mg/dL Estimated GFR ml/min BUN/Creatinine Ratio % Glucose (65-100) mg/dL POC Glucose 296 H (70-105) Calcium (8.4-10.2) mg/dL Magnesium (1.7-2.3) mg/dL Total Bilirubin (0.1-1.2) mg/dL AST (5-40) units/L ALT (7-56) units/L Alkaline Phosphatase (35-129) units/L Troponin T (0.00-0.029) ng/mL Total Protein (6.3-8.2) g/dL Albumin (3.9-5) g/dL Albumin/Globulin Ratio % Urine HCG, Qual (Negative) Urine Opiates Screen Presumptive negative Urine Methadone Screen Presumptive negative Ur Barbiturates Screen Presumptive negative Ur Phencyclidine Scrn Presumptive negative Ur Amphetamines Screen Presumptive negative U Benzodiazepines Scrn Presumptive negative Urine Cocaine Screen Presumptive negative U Marijuana (THC) Screen Presumptive negative Drugs of Abuse Note Disclamer Plasma/Serum Alcohol (0-0.07) % 07/16/19 07/16/19 07/16/19 Range/Units 23:31 23:31 23:31 WBC (4.5-11.0) K/mm3 RBC (3.65-5.03) M/mm3 Hgb (10.1-14.3) gm/dl Hct (30.3-42.9) % MCV (79-97) fl MCH (28-32) pg MCHC (30-34) % RDW (13.2-15.2) % Plt Count (140-440) K/mm3 Lymph % (Auto) (13.4-35.0) % [place] % (Auto) (0.0-7.3) % Eos % (Auto) (0.0-4.3) % Baso % (Auto) (0.0-1.8) % Lymph # (1.2-5.4) K/mm3 [place] # (0.0-0.8) K/mm3 Eos # (0.0-0.4) K/mm3 Baso # (0.0-0.1) K/mm3 Seg Neutrophils % (40.0-70.0) % Seg Neutrophils # (1.8-7.7) K/mm3 PT 13.0 (12.2-14.9) Sec. INR 0.97 (0.87-1.13) APTT 25.0 (24.2-36.6) Sec. Sodium 143 (137-145) mmol/L Potassium 3.5 L (3.6-5.0) mmol/L Chloride 106.3 (98-107) mmol/L Carbon Dioxide 20 L (22-30) mmol/L Anion Gap 20 mmol/L BUN 7 (7-17) mg/dL Creatinine 0.6 L (0.7-1.2) mg/dL Estimated GFR > 60 ml/min BUN/Creatinine Ratio 12 % Glucose 333 H (65-100) mg/dL POC Glucose (70-105) Calcium 8.6 (8.4-10.2) mg/dL Magnesium (1.7-2.3) mg/dL Total Bilirubin < 0.20 (0.1-1.2) mg/dL AST 21 (5-40) units/L ALT 13 (7-56) units/L Alkaline Phosphatase 50 (35-129) units/L Troponin T < 0.010 (0.00-0.029) ng/mL Total Protein 7.7 (6.3-8.2) g/dL Albumin 4.3 (3.9-5) g/dL Albumin/Globulin Ratio 1.3 % Urine HCG, Qual (Negative) Urine Opiates Screen Urine Methadone Screen Ur Barbiturates Screen Ur Phencyclidine Scrn Ur Amphetamines Screen U Benzodiazepines Scrn Urine Cocaine Screen U Marijuana (THC) Screen Drugs of Abuse Note Plasma/Serum Alcohol 0.17 H (0-0.07) % 07/16/19 07/16/19 07/17/19 Range/Units 23:31 Unknown 02:21 WBC (4.5-11.0) K/mm3 RBC (3.65-5.03) M/mm3 Hgb (10.1-14.3) gm/dl Hct (30.3-42.9) % MCV (79-97) fl MCH (28-32) pg MCHC (30-34) % RDW (13.2-15.2) % Plt Count (140-440) K/mm3 Lymph % (Auto) (13.4-35.0) % [place] % (Auto) (0.0-7.3) % Eos % (Auto) (0.0-4.3) % Baso % (Auto) (0.0-1.8) % Lymph # (1.2-5.4) K/mm3 [place] # (0.0-0.8) K/mm3 Eos # (0.0-0.4) K/mm3 Baso # (0.0-0.1) K/mm3 Seg Neutrophils % (40.0-70.0) % Seg Neutrophils # (1.8-7.7) K/mm3 PT (12.2-14.9) Sec. INR (0.87-1.13) APTT (24.2-36.6) Sec. Sodium (137-145) mmol/L Potassium (3.6-5.0) mmol/L Chloride (98-107) mmol/L Carbon Dioxide (22-30) mmol/L Anion Gap mmol/L BUN (7-17) mg/dL Creatinine (0.7-1.2) mg/dL Estimated GFR ml/min BUN/Creatinine Ratio % Glucose (65-100) mg/dL POC Glucose (70-105) Calcium (8.4-10.2) mg/dL Magnesium 1.60 L (1.7-2.3) mg/dL Total Bilirubin (0.1-1.2) mg/dL AST (5-40) units/L ALT (7-56) units/L Alkaline Phosphatase (35-129) units/L Troponin T < 0.010 (0.00-0.029) ng/mL Total Protein (6.3-8.2) g/dL Albumin (3.9-5) g/dL Albumin/Globulin Ratio % Urine HCG, Qual Negative (Negative) Urine Opiates Screen Urine Methadone Screen Ur Barbiturates Screen Ur Phencyclidine Scrn Ur Amphetamines Screen U Benzodiazepines Scrn Urine Cocaine Screen U Marijuana (THC) Screen Drugs of Abuse Note Plasma/Serum Alcohol (0-0.07) % - EKG Data -: EKG Interpreted by Me EKG shows normal: sinus rhythm, intervals (pr 199), ST-T waves (no stemi) Rate: tachycardia (101) - EKG Data 07/17/19 02:25 repeat ekg nsr rate 92, no stemi/t inv - Radiology Data Radiology results: report reviewed cxr:[id number] - Medical Decision Making Patient has a heart score of 2. Has a history of a stent however, has atypical chest pain, chest pain-free during ED stay, normal EKG x2, and troponin negative x2. Case discussed with cardiology. Patient be discharged and encouraged to narda helton with cardiology as outpatient. Patient states she has her medications at home. She is encouraged to take them as prescribed. She will also be represcribed Lipitor. Patient received aspirin, metformin, Pepcid, and Toradol, iv mag, and po kcl in the ED - Differential Diagnosis Atypical chest pain, DC, unstable angina Critical Care Time: No Critical care attestation.: If time is entered above; I have spent that time in minutes in the direct care of this critically ill patient, excluding procedure time. ED Disposition Clinical Impression: Atypical chest pain, Alcohol intoxication, Diabetes, Noncompliance with medication regimen Disposition: TO HOME OR SELFCARE Is pt being admited?: No Condition: Stable Instructions: Chest Pain (ED), Diabetes Mellitus Type 2 in Adults (ED) Additional Instructions: Take the medication as prescribed. Continue your current medication. Follow-up with your doctor or doctor/clinic provided. Return if symptoms worsen as indicated by your discharge instructions. This care is provided during an unprecedented National emergency due to the novel coronavirus (COVID-19). COVID-19 infections and transmission risks place heavy strains on healthcare resources. As this pandemic evolves, the hospital and providers strive to respond fluidly, to remain operational, and to provide care relative to available resources and information. Outcomes are unpredictable and treatments are without well defined guidelines. Further, the impact of COVID-19 on all aspects of emergency care, including the impact to patient seeking care for reasons other than COVID-19, is unavoidable during this national emergency Prescriptions: AtorvaSTATin [Lipitor] 40 mg PO QHS #30 day Referrals: JOSSY MA MD [Primary Care Provider] - 3-5 Days DEMI PRICE MD [Staff Physician] - 3-5 Days TYLER GREY MD [Staff Physician] - 3-5 Days [facility] [Provider Group] - 3-5 Days Time of Disposition: 05:20
[2019-07-16] MEDS ORDERED: metFORMIN 500 MG TAB PO ONE (23:19)
[2019-07-16 23:45] LABS: Amphetamine Screen,Urine PRESUMPTIVE NEGATIVE; Benzodiazepines Screen,Urine PRESUMPTIVE NEGATIVE; Cannabinoid Screen,Urine PRESUMPTIVE NEGATIVE; Cocaine Screen,Urine PRESUMPTIVE NEGATIVE; Methadone Screen,Urine PRESUMPTIVE NEGATIVE; Opiate Screen,Urine PRESUMPTIVE NEGATIVE
[2019-07-16 23:50] LABS: HCG Qualitative,Urine Negative (Negative)
[2019-07-17 00:02] LABS: Basophils # (Auto) 0.1 K/mm3 (0.0-0.1); Basophils % (Auto) 2.9 % (0.0-1.8); Eosinophils % (Auto) 0.6 % (0.0-4.3); Hematocrit 33.5 % (30.3-42.9); Hemoglobin 11.1 gm/dl (10.1-14.3); Lymphocytes # (Auto) 1.4 K/mm3 (1.2-5.4); Lymphocytes % (Auto) 37.1 % (13.4-35.0); Mean Corpuscular HGB Conc 33 % (30-34); Mean Corpuscular Volume 81 fl (79-97); Monocytes # (Auto) 0.2 K/mm3 (0.0-0.8); Platelet Count 252 K/mm3 (140-440); Red Blood Count 4.14 M/mm3 (3.65-5.03); Red Cell Distribution Width 16.4 % (13.2-15.2)
[2019-07-17 00:13] LABS: INR 0.97 (0.87-1.13)
[2019-07-17] MEDS ORDERED: MAGNESIUM SULFATE 1 GM in SODIUM CHLORIDE 0.9% 50 ML IV ONE (00:15)
[2019-07-17 00:17] LABS: Alanine Aminotransferase 13 units/L (7-56); Albumin 4.3 g/dL (3.9-5); BUN/Creatinine Ratio 12; Blood Urea Nitrogen 7 mg/dL (7-17); Calcium 8.6 mg/dL (8.4-10.2); Hemolysis Index 3
--- NOTE | 2019-07-17 00:33 | XRay Report ---
CHEST 2 VIEWS INDICATION / CLINICAL INFORMATION: Chest Pain. COMPARISON: 03/26/2017 FINDINGS: SUPPORT DEVICES: None. HEART / MEDIASTINUM: No significant abnormality. LUNGS / PLEURA: No significant pulmonary or pleural abnormality. No pneumothorax. ADDITIONAL FINDINGS: No significant additional findings. IMPRESSION: 1. No acute findings. No interval change. Signer Name: Carol Esposito MD Signed: 07/17/2019 12:28 AM Workstation Name: [id number]
[2019-07-17] MEDS ORDERED: POTASSIUM CHLORIDE ER 20 MEQ TAB PO ONE (01:00)
[2019-07-17] MEDS ORDERED: KETOROLAC 30 MG/1 ML INJ IV ONE (05:16)
[2019-07-17] MEDS ORDERED: FAMOTIDINE 20 MG/2 ML INJ IV ONE (05:18)
[2019-07-17 05:57] VITALS: BP 167/101
== END 2019-07-17 06:16 | disposition home or self-care (01) ==
LOC: ED 22:52
DX: R07.89 Other chest pain (principal); F10.129 Alcohol abuse with intoxication, unspecified; E11.9 Type 2 diabetes mellitus without complications; Z91.14 Patient's other noncompliance with medication regimen; I10 Essential (primary) hypertension; M19.90 Unspecified osteoarthritis, unspecified site; K21.9 Gastro-esophageal reflux disease without esophagitis; Z90.49 Acquired absence of other specified parts of digestive tract; Z98.890 Other specified postprocedural states; Z79.82 Long term (current) use of aspirin; Z79.899 Other long term (current) drug therapy; Z88.8 Allergy status to other drugs, medicaments and biological substances
CPT/HCPCS: 36415; 71046; 80053; 80307; 81025; 82962; 83735; 84484; 85025; 85610; 85730; 93005; 93010; 96365; 96375; 99285; J1885; J3475; 80320; G0480